=== PATIENT | male | born 1995 | race African-American/Black ===

== ENCOUNTER 2016-12-05 16:05 | Emergency (ER) | payer MEDICAID ==
[~2016-12-05] VITALS: Ht 157.5 cm; Wt 54.4 kg
[2016-12-05 16:25] VITALS: BP 110/60
--- NOTE | 2016-12-05 16:47 | Emergency Room Report ---
History of Present Illness General Chief Complaint: Flu Like Symptoms Source: Patient Present Illness HPI 21-year-old male presents emergency department complaining of persistent nonproductive cough times one week. Reports nasal congestion and rhinorrhea denies nausea, vomiting, fevers, chills. reports hx of asthma and is out of his advair medication, and will need refill. Patient reports his older brother had similar symptoms a week prior, he has been sharing drinks. Patient denies recent travel. Denies CP, Palpitations, LOC, AMS, dizziness, Changes in Vision, Sensation, paresthesias, or a sudden severe headache. Allergies: Coded Allergies: No Known Allergies (Unverified , 12/05/16) Patient History Past Medical History: see triage record Past Surgical History: none Pertinent Family History: none Immunizations: UTD Reviewed Nursing Documentation: PMH: Agreed, PSxH: Agreed Nursing Documentation-PMH Past Medical History: No Stated History Review of Systems All Other Systems: negative except mentioned in HPI Physical Exam Vital Signs Date Time Temp Pulse Resp B/P Pulse Ox O2 Delivery O2 Flow Rate FiO2 12/05/16 16:18 98.4 87 19 114/53 97 Room Air Sp02 EP Interpretation: reviewed, normal General Appearance: no apparent distress, alert, GCS 15, non-toxic Head: normocephalic, atraumatic Eyes: bilateral eye PERRL, bilateral eye normal inspection ENT: hearing grossly normal, normal pharynx, no angioedema, normal voice Neck: full range of motion, supple/symm/no masses Respiratory: chest non-tender, lungs clear, normal breath sounds, no rhonchi, no respiratory distress, no retraction, no accessory muscle use, speaking full sentences, wheezing - diffuse expiratory wheezes bilaterally Cardiovascular #1: regular rate, rhythm, no edema Gastrointestinal: normal bowel sounds, non tender, soft, no guarding, no rebound Rectal: deferred Genitourinary: normal inspection, no CVA tenderness Musculoskeletal: back normal, gait/station normal, normal range of motion, non- tender, no calf tenderness Neurologic: alert, oriented x3, responsive, motor strength/tone normal, sensory intact, speech normal Psychiatric: judgement/insight normal, memory normal, mood/affect normal, no suicidal/homicidal ideation Skin: normal color, no rash, warm/dry, well hydrated Lymphatic: no adenopathy Medical Decision Making PA Attestation Dr. banks is my supervising Physician whom patient management has been discussed with. Diagnostic Impression: Primary Impression: Upper respiratory infection, viral ER Course Pt. presents to the ED c/o dry cough and nasal congestion, and runny nose with hx of asthma x 1 week. Ddx considered but are not limited to URI, pneumonia, PE, strep pharyngitis, meningitis, bronchitis Vital signs: Pt.is afebrile VS are WNL H&PE are most consistent with bronchitis- URI/viral in etiology ORDERS: none required at this time, the diagnosis is clinical ED INTERVENTIONS: None required at this time. DISCHARGE: At this time pt. is stable for d/c to home. Will provide printed patient care instructions, and any necessary prescriptions. Care plan and follow up instructions have been discussed with the patient prior to discharge. Last Vital Signs Date Time Temp Pulse Resp B/P Pulse Ox O2 Delivery O2 Flow Rate FiO2 12/05/16 16:25 78 18 Room Air 12/05/16 16:25 98.0 110/60 97 Disposition: HOME, SELF-CARE Condition: Stable Scripts Loratadine/Pseudoephedrine (CLARITIN-D 12 HOUR TABLET) 1 Each Tab.er.12h 1 TAB ORAL EVERY 12 HOURS for 5 Days, #30 TAB Prov: Digna Torres P.A. 12/05/16 Fluticasone/Salmeterol (Advair 250-50 Diskus) 1 Each Blst.w.dev 1 PUFF INH EVERY 12 HOURS, #1 EA 2 Refills Prov: Digna Torres P.A. 12/05/16 Albuterol Sulfate* (ALBUTEROL SULFATE MDI*) 8.5 Gm Hfa.aer.ad 2 PUFF INH Q3H, #1 INH 0 Refills Prov: Digna Torres P.A. 12/05/16 D-Methorphan Hb/Prometh Hcl* (PROMETHAZINE-DM SYRUP*) 118 Ml Syrup 5 ML ORAL Q6H Y for For Cough, #240 ML 0 Refills Prov: Digna Torres P.A. 12/05/16 Patient Instructions: Upper Respiratory Infection, Adult Additional Instructions: Take medications as directed. Follow up with PCP in 3-5 days Return sooner to ED if new symptoms occur, or current symptoms become worse. Do not drink alcohol, drive, or operate heavy machinery while taking cough syrup as this may cause drowsiness. Digna Torres. Dec 05, 2016 16:47
[2016-12-05] MEDS ORDERED: PROMETHAZINE-D118 ML ORAL (16:49)
[2016-12-05] MEDS ORDERED: ALBUTEROL SULF8.5 GM INH (16:49)
[2016-12-05] MEDS ORDERED: CLARITIN-D 121 EAC1 ORAL (16:49)
[2016-12-05] MEDS ORDERED: ADVAIR 250-501 EACH INH (16:49)
[2016-12-05 17:00] VITALS: BP 116/62
== END 2016-12-05 17:00 | disposition home or self-care (01) ==
LOC: EMR 16:30
DX: J06.9 Acute upper respiratory infection, unspecified (principal); B97.89 Other viral agents as the cause of diseases classified elsewhere
CPT/HCPCS: 99284

== ENCOUNTER 2016-12-16 19:39 | Emergency (ER) | payer MEDICAID ==
[~2016-12-16] VITALS: Ht 162.6 cm; Wt 59.0 kg
[~2016-12-16 19:39] MED LIST: ADVAIR 250-501 EACH INH; ALBUTEROL SULF8.5 GM INH; CLARITIN-D 121 EAC1 ORAL; PROMETHAZINE-D118 ML ORAL
[2016-12-16] MEDS ORDERED: Azithromycin 250mg tab ORAL ONE (20:15)
[2016-12-16] MEDS ORDERED: Lidocaine 1% MPF 10mg/ml 5ml ONE (20:31)
[2016-12-16 21:11] VITALS: BP 115/75
--- NOTE | 2016-12-17 07:31 | Emergency Room Report ---
History of Present Illness General Chief Complaint: General Complaint Source: Patient Present Illness HPI Patient presents with girlfriend with concerns of possible STD Patient denies any symptoms denies any dysuria frequency Denies any discharge He had some minimal itching sensation on the right scrotal area Denies any abdominal pain denies any fevers or chills Denies any vomiting or diarrhea Allergies: Coded Allergies: No Known Allergies (Unverified , 12/05/16) Patient History Past Medical History: see triage record Pertinent Family History: none Reviewed Nursing Documentation: PMH: Agreed, PSxH: Agreed Nursing Documentation-PMH Past Medical History: No Stated History Review of Systems All Other Systems: negative except mentioned in HPI Physical Exam Vital Signs Date Time Temp Pulse Resp B/P Pulse Ox O2 Delivery O2 Flow Rate FiO2 12/16/16 20:12 99.7 71 16 115/75 99 Room Air Sp02 EP Interpretation: reviewed, normal General Appearance: well appearing, no apparent distress Head: normocephalic, atraumatic Eyes: bilateral eye EOMI, bilateral eye PERRL ENT: normal pharynx, no angioedema, normal voice Gastrointestinal: non tender, soft Genitourinary: other - No rash visualized on the scrotal area Musculoskeletal: normal inspection Neurologic: alert, oriented x3, responsive Skin: normal color, no rash Lymphatic: no adenopathy Medical Decision Making Diagnostic Impression: Primary Impression: urethritis ER Course Given the patient's presentation And concerns patient was treated symptomatically I did notify him that for STD workup Patient was given STD clinic referral At this time with the appropriate medical screening eval patient is appropriate for close outpatient follow Last Vital Signs Date Time Temp Pulse Resp B/P Pulse Ox O2 Delivery O2 Flow Rate FiO2 12/16/16 21:11 99.7 71 16 115/75 99 Room Air Status: improved Disposition: HOME, SELF-CARE Condition: Improved Referrals: [id number],REFERRING (PCP) Patient Instructions: Urethritis, Adult Additional Instructions: Patient is provided with the discharge instructions notified to follow up with primary doctor in the next 2-3 days otherwise return to the er with any worsening symptoms. MERY FLOYD D.O. Dec 17, 2016 07:30
== END 2016-12-16 21:19 | disposition home or self-care (01) ==
LOC: EMR 19:59
DX: N34.2 Other urethritis (principal)
CPT/HCPCS: 96372; 99283; J0696; Q0144

== ENCOUNTER 2017-02-11 21:46 | Emergency (ER) | payer MEDICAID ==
[~2017-02-11] VITALS: Ht 165.1 cm; Wt 59.0 kg
[2017-02-11] MEDS ORDERED: KEFLEX500 MG ORAL (23:17)
[2017-02-11] MEDS ORDERED: ALBUTEROL SULF8.5 GM INH (23:17)
[2017-02-11] MEDS ORDERED: PREDNISONE20 MG ORAL (23:17)
[2017-02-11] MEDS ORDERED: PROMETHAZINE-C118 M1 ORAL (23:17)
[2017-02-11] MEDS ORDERED: BACITRACIN15 GM TOPIC (23:18)
[2017-02-11] MEDS ORDERED: Lidocaine 1% MPF 10mg/ml 5ml ONE (23:27)
[2017-02-11] MEDS ORDERED: Azithromycin 250mg tab ORAL ONE (23:30)
[2017-02-11 23:41] VITALS: BP 120/78
--- NOTE | 2017-02-12 01:08 | Emergency Room Report ---
History of Present Illness General Chief Complaint: Upper Respiratory Illness Source: Patient Present Illness HPI 21-year-old male presents ED for evaluation. Patient notes productive cough x3 weeks. Patient states he smokes. Notes cough with greenish sputum. Denies fevers or chills. Denies chest pain or shortness of breath. Patient also notes some swelling to his scrotum x3 days. States that he states his scrotum. Notes redness and swelling. Denies any fevers or chills. Denies discharge. Patient states he's also sexually active and is concerned about STD. Denies any discharge at this time. No other aggravating or relieving factors. Denies any other associated symptoms Allergies: Coded Allergies: No Known Allergies (Unverified , 12/05/16) Patient History Past Medical History: asthma Past Surgical History: none Pertinent Family History: none Social History: Denies: alcohol use, drug use, smoking Immunizations: UTD Reviewed Nursing Documentation: PMH: Agreed, PSxH: Agreed Nursing Documentation-PMH Hx Asthma: Yes Review of Systems All Other Systems: negative except mentioned in HPI Physical Exam Vital Signs Date Time Temp Pulse Resp B/P Pulse Ox O2 Delivery O2 Flow Rate FiO2 02/11/17 22:59 98.2 88 15 120/78 99 Room Air Sp02 EP Interpretation: reviewed, normal General Appearance: no apparent distress, alert, GCS 15, non-toxic Head: normocephalic, atraumatic Eyes: bilateral eye PERRL, bilateral eye normal inspection ENT: hearing grossly normal, normal pharynx, no angioedema, normal voice Neck: full range of motion, supple/symm/no masses Respiratory: chest non-tender, lungs clear, normal breath sounds, speaking full sentences Cardiovascular #1: regular rate, rhythm, no edema Cardiovascular #2: 2+ carotid (R), 2+ carotid (L), 2+ radial (R), 2+ radial (L) , 2+ dorsalis pedis (R), 2+ dorsalis pedis (L) Gastrointestinal: normal bowel sounds, non tender, soft, non-distended, no guarding, no rebound Rectal: deferred Genitourinary: normal inspection, no CVA tenderness, other - erythema to scrotum. no fluctuance. no discharge Musculoskeletal: back normal, gait/station normal, normal range of motion, non- tender Neurologic: alert, oriented x3, responsive, motor strength/tone normal, sensory intact, speech normal Psychiatric: judgement/insight normal, memory normal, mood/affect normal, no suicidal/homicidal ideation Reflexes: 3+ bicep (R), 3+ bicep (L), 3+ tricep (R), 3+ tricep (L), 3+ knee (R) , 3+ knee (L) Skin: normal color, no rash, warm/dry, well hydrated Lymphatic: no adenopathy Medical Decision Making Diagnostic Impression: Primary Impression: Folliculitis Additional Impression: Bronchitis ER Course Hospital Course 21-year-old male presents to ED with productive cough x3 weeks, redness and swelling to scrotum Differential diagnoses include: Cellulitis, dermatitis, insect bite, abscess Clinical course Patient placed on stretcher. After initial history, physical exam reveals a young male in no acute distress. On exam there is a site for mild erythema to the scrotum. No fluctuance. No discharge. Consistent with folliculitis due to shaving. Patient concerned about potential STD with history of unprotected sex. No discharge at this time. Given Rocephin and azithromycin Respiratory symptoms consistent with bronchitis. We'll treat with cough syrup, albuterol and prednisone Diagnosis - folliculitis, bronchitis stable and discharged to home with prescription for prednisone, cough syrup, albuterol, bacitracin, Keflex. Instructed to followup with PMD. Instructed return to ED if symptoms recur or worsen Last Vital Signs Date Time Temp Pulse Resp B/P Pulse Ox O2 Delivery O2 Flow Rate FiO2 02/11/17 23:41 98.2 75 15 120/78 99 Room Air Status: improved Disposition: HOME, SELF-CARE Condition: Stable Scripts Bacitracin (Bacitracin) 28.4 Gm Oint...g. 1 APPLIC TOPIC THREE TIMES A DAY, #28.4 GM Prov: GRACE AARON M.D. 02/11/17 Albuterol Sulfate* (ALBUTEROL SULFATE MDI*) 8.5 Gm Hfa.aer.ad 2 PUFF INH Q4H Y for cough/wheezing, #1 EA 0 Refills Prov: GRACE AARON M.D. 02/11/17 Codeine/Promethazine Hcl* (PROMETHAZINE-CODEINE SYRUP*) 118 Ml Syrup 5 ML ORAL Q6H Y for For Cough, #118 ML 0 Refills Prov: GRACE AARON M.D. 02/11/17 Prednisone* (PREDNISONE*) 20 Mg Tablet 40 MG ORAL DAILY, #10 TAB Prov: GRACE AARON M.D. 02/11/17 Cephalexin* (KEFLEX*) 500 Mg Capsule 500 MG ORAL Q6H, #28 CAP 0 Refills Prov: GRACE AARON M.D. 02/11/17 Referrals: [id number],REFERRING (PCP) Patient Instructions: Acute Bronchitis, [id number], Folliculitis GRACE AARON M.D. Feb 12, 2017 01:08
== END 2017-02-11 23:40 | disposition home or self-care (01) ==
LOC: EMR 22:51
DX: J40 Bronchitis, not specified as acute or chronic (principal); L73.9 Follicular disorder, unspecified; J45.909 Unspecified asthma, uncomplicated; F17.200 Nicotine dependence, unspecified, uncomplicated
CPT/HCPCS: 96372; 99284; J0696; Q0144

== ENCOUNTER 2017-03-12 14:33 | Emergency (ER) | payer MEDICAID ==
[~2017-03-12] VITALS: Ht 162.6 cm; Wt 61.2 kg
[~2017-03-12 14:33] MED LIST changes: +BACITRACIN15 GM TOPIC; +KEFLEX500 MG ORAL; +PREDNISONE20 MG ORAL; +PROMETHAZINE-C118 M1 ORAL
[2017-03-12] MEDS ORDERED: ZITHROMAX250 MG ORAL (15:31)
[2017-03-12] MEDS ORDERED: PROMETHAZI6.25 MG/2 ORAL (15:31)
[2017-03-12] MEDS ORDERED: PROAIR HFA8.5 GM INH (15:31)
[2017-03-12 15:38] VITALS: BP 113/62
--- NOTE | 2017-03-12 16:51 | Emergency Room Report ---
History of Present Illness General Chief Complaint: Upper Respiratory Illness Source: Patient Present Illness [facility] The patient is a 21-year-old male who denies any medical history presenting for over 2 weeks of productive cough with subjective fevers. Produces a green to yellow sputum. He denies any sick contacts or recent travel. He has not tried any medications for this. He denies any other symptoms such as N, V, rash, LINDSAY, neck pain/stiffness, abd pain, SOB Allergies: Coded Allergies: No Known Allergies (Unverified , 12/05/16) Patient History Past Medical History: see triage record Pertinent Family History: none Reviewed Nursing Documentation: PMH: Agreed, PSxH: Agreed Nursing Documentation-PMH Past Medical History: No Stated History Hx Asthma: Yes Review of Systems All Other Systems: negative except mentioned in HPI Physical Exam Vital Signs Date Time Temp Pulse Resp B/P Pulse Ox O2 Delivery O2 Flow Rate FiO2 03/12/17 14:56 97.5 90 16 113/62 99 Room Air Sp02 EP Interpretation: reviewed, normal General Appearance: no apparent distress, alert, GCS 15, non-toxic Head: normocephalic, atraumatic Eyes: bilateral eye PERRL, bilateral eye normal inspection ENT: hearing grossly normal, normal pharynx, no angioedema, normal voice, uvula midline Neck: full range of motion, supple/symm/no masses Respiratory: no respiratory distress, no retraction, no accessory muscle use, expiration Cardiovascular #1: regular rate, rhythm, no edema Musculoskeletal: back normal, gait/station normal, normal range of motion, non- tender Neurologic: alert, oriented x3, responsive, motor strength/tone normal, sensory intact, normal gait, speech normal Psychiatric: judgement/insight normal, memory normal, mood/affect normal, no suicidal/homicidal ideation Skin: normal color, no rash, warm/dry, well hydrated Lymphatic: no adenopathy Medical Decision Making PA Attestation Dr. hameed is my supervising physician. Patient management was discussed with my supervising physician Diagnostic Impression: Primary Impression: Bronchitis ER Course The patient is a 21-year-old male who denies any medical history presenting for over 2 weeks of productive cough with subjective fevers Differential diagnosis include but not limited to pharyngitis, sinusitis, AOM, bronchitis, PNA PE: afebrile. No tachypnea. No apparent distress. No TTP over maxillary or frontal sinuses. Lungs: diffuse wheezing. No accessory muscle use. No resp distress Heart: RRR, no abnormal heart sounds Ears: external auditory canal clear. Non erythematous. Bilat TM intact. Cone of light present bilat. No bulging of TM. No serous fluid seen. no nasal D/C Nor cervical lymphad No tonsillar exudate. Uvula midline.Oropharynx non erythematous The patient will be discharged home with a prescriptions for cough medication, albuterol, and azithromycin due to worsening symptoms past 2 weeks. ER precautions given Last Vital Signs Date Time Temp Pulse Resp B/P Pulse Ox O2 Delivery O2 Flow Rate FiO2 03/12/17 15:38 97.5 88 16 113/62 99 Room Air Status: improved Disposition: HOME, SELF-CARE Condition: Improved Scripts Albuterol Sulfate* (PROAIR HFA*) 8.5 Gm Hfa.aer.ad 2 PUFFS INH Q6H, #8.5 GM 0 Refills Prov: ELLA ASENCIO 03/12/17 Azithromycin* (ZITHROMAX*) 250 Mg Tablet 250 MG ORAL DAILY, #6 TAB 0 Refills Take two tables once daily for 1 day, then one tablet once daily for 4 days. Prov: ELLA ASENCIO 03/12/17 Promethazine HCl (Promethazine HCl) 6.25 Mg/5 Ml Syrup 10 ML ORAL Q8H Y for For Cough, #120 ML 0 Refills Prov: ELLA ASENCIO 03/12/17 Referrals: [id number],REFERRING (PCP) Patient Instructions: Acute Bronchitis Additional Instructions: I discussed my findings with the patient. All questions and concerns have been answered. Treatment and medication compliance have been addressed. I advised the patient that they need to follow up with PMD in 3-5 days. Return to ED if pain remains or worsens, cough worsens or remains, you notice blood in your sputum, you notice wheezing, you experience a fever, or if needed for any reason. Patient verbalized understanding of discharge instructions. ELLA ASENCIO Mar 12, 2017 16:51
== END 2017-03-12 15:38 | disposition home or self-care (01) ==
LOC: EMR 15:27
DX: J45.909 Unspecified asthma, uncomplicated (principal)
CPT/HCPCS: 99284

== ENCOUNTER 2017-06-14 18:12 | Emergency (ER) | payer MEDICAID ==
[~2017-06-14] VITALS: Ht 165.1 cm; Wt 60.3 kg
[~2017-06-14 18:12] MED LIST changes: +PROAIR HFA8.5 GM INH; +PROMETHAZI6.25 MG/2 ORAL; +ZITHROMAX250 MG ORAL
--- NOTE | 2017-06-14 18:40 | Emergency Room Report ---
History of Present Illness General Chief Complaint: Wound Recheck/Suture Removal Source: Patient Present Illness HPI 21-year-old male presents to the emergency department for suture removal of left lower lip lack that he sustained 5 days ago. Patient denies pain at this time he states that He was unable to fill his prescription for antibiotics because he lost it. He reports erythema and some yellow discharge about the sutures. Patient also states that he wants to be treated for STDs as he had recent unprotected intercourse with someone he believes may have one. he denies dysuria, penile discharge, testicular pain, swelling tender lymph nodes, rashes or joint pain. Patient denies nausea, vomiting, fevers, chills, abdominal pain. Patient also is requesting refill of his asthma medications Advair and albuterol. Patient reports she's been having intermittent productive cough and is out of his inhalers. Denies CP, Palpitations, LOC, AMS, dizziness, Changes in Vision, Sensation, paresthesias, or a sudden severe headache. Allergies: Coded Allergies: No Known Allergies (Unverified , 12/05/16) Patient History Past Medical History: see triage record Past Surgical History: none Pertinent Family History: none Immunizations: UTD Reviewed Nursing Documentation: PMH: Agreed, PSxH: Agreed Nursing Documentation-PMH Hx Asthma: Yes Review of Systems All Other Systems: negative except mentioned in HPI Physical Exam Vital Signs Date Time Temp Pulse Resp B/P Pulse Ox O2 Delivery O2 Flow Rate FiO2 06/14/17 18:16 98.8 77 15 117/67 96 Room Air Sp02 EP Interpretation: reviewed, normal General Appearance: no apparent distress, alert, GCS 15, non-toxic Head: normocephalic, atraumatic Eyes: bilateral eye PERRL, bilateral eye normal inspection ENT: hearing grossly normal, normal pharynx, no angioedema, normal voice Neck: full range of motion, supple/symm/no masses Respiratory: chest non-tender, lungs clear, normal breath sounds, no wheezing, speaking full sentences Cardiovascular #1: regular rate, rhythm, no edema Gastrointestinal: non tender, soft, no guarding, no rebound Rectal: deferred Genitourinary: normal inspection, no CVA tenderness Musculoskeletal: back normal, gait/station normal, normal range of motion, non- tender Neurologic: alert, oriented x3, responsive, motor strength/tone normal, sensory intact, normal gait, speech normal Psychiatric: judgement/insight normal, memory normal, mood/affect normal Skin: normal color, no rash, warm/dry, well hydrated, other - left lip laceration healing with d/c noted suspicious for infeciton, no dehiscence. Lymphatic: no adenopathy Medical Decision Making PA Attestation Dr. Miranda is my supervising Physician whom patient management has been discussed with. Diagnostic Impression: Primary Impression: Encounter for removal of sutures Additional Impressions: Infected laceration of lip Qualified Codes: S01.511A - Laceration without foreign body of lip, initial encounter; L08.9 - Local infection of the skin and subcutaneous tissue, unspecified Medication refill Contact with or exposure to venereal diseases ER Course 21-year-old male presents to the emergency department for suture removal of left lower lip lack that he sustained 5 days ago. Patient denies pain at this time he states that He was unable to fill his prescription for antibiotics because he lost it. He reports erythema and some yellow discharge about the sutures. Patient also states that he wants to be treated for STDs as he had recent unprotected intercourse with someone he believes may have one. he denies dysuria, penile discharge, testicular pain, swelling tender lymph nodes, rashes or joint pain. Patient denies nausea, vomiting, fevers, chills, abdominal pain. Patient also is requesting refill of his asthma medications Advair and albuterol. Patient reports she's been having intermittent productive cough and is out of his inhalers. Denies CP, Palpitations, LOC, AMS, dizziness, Changes in Vision, Sensation, paresthesias, or a sudden severe headache. Ddx considered but are not limited to laceration, tendon injury, cellulitis, dehiscence, STD, urethritis, medication refill request. Vital signs: are WNL, pt. is afebrile H&PE are most consistent with: healing laceration of the left lower lip with evidence of purulent d/c suggesting infection. ORDERS: none required at this time, the diagnosis is clinical ED INTERVENTIONS: - 3 Sutures removed. -250mg Rocephin IM -D/w pt. to start abx. DISCHARGE: At this time pt. is stable for d/c to home. Will provide printed patient care instructions, and any necessary prescriptions. Care plan and follow up instructions have been discussed with the patient prior to discharge. Last Vital Signs Date Time Temp Pulse Resp B/P Pulse Ox O2 Delivery O2 Flow Rate FiO2 06/14/17 18:16 98.8 77 15 117/67 96 Room Air Disposition: HOME, SELF-CARE Condition: Stable Scripts Doxycycline Hyclate* (VIBRAMYCIN*) 100 Mg Capsule 100 MG ORAL EVERY 12 HOURS for 7 Days, #14 CAP 0 Refills Prov: Digna Torres 06/14/17 Guaifenesin/Dextromethorphan (PERFECTOITUSSIN COUGH-CHEST DM LIQ) 237 Ml Liquid 10 ML PO Q6HR, #118 ML Prov: Digna Torres 06/14/17 Fluticasone/Salmeterol (Advair 100-50 Diskus) 1 Each Blst.w.dev 1 PUFF INH EVERY 12 HOURS, #1 EA Prov: Digna Torres 06/14/17 Albuterol Sulfate* (ALBUTEROL SULFATE MDI*) 8.5 Gm Hfa.aer.ad 2 PUFF INH Q6H, #1 INH 0 Refills Prov: Digna Torres 06/14/17 Ibuprofen* (MOTRIN*) 600 Mg Tablet 600 MG ORAL THREE TIMES A DAY, #30 TAB 0 Refills Prov: Digna Torres 06/14/17 Patient Instructions: Suture Removal, Care After Additional Instructions: Take medications as directed. Follow up with a Primary Care Provider in 3-5 days, even if your symptoms have resolved. --Please review list of primary care clinics, if you do not already have a primary care provider Return sooner to ED if new symptoms occur, or current symptoms become worse. - Please note that this Emergency Department Report was dictated using [employer] perforator operator technology software, occasionally this can lead to erroneous entry secondary to interpretation by the dictation equipment. Digna Torres Jun 14, 2017 18:40
[2017-06-14] MEDS ORDERED: AMOXICILLIN500 MG ORAL (18:41)
[2017-06-14] MEDS ORDERED: IBUPROFEN600 MG ORAL (18:41)
[2017-06-14 18:53] VITALS: BP 117/67
[2017-06-14] MEDS ORDERED: ROBITUSSIN COU237 M1 PO (18:53)
[2017-06-14] MEDS ORDERED: ALBUTEROL SULF8.5 GM INH (18:53)
[2017-06-14] MEDS ORDERED: ADVAIR 100-501 EACH INH (18:53)
[2017-06-14] MEDS ORDERED: VIBRAMYCIN100 MG ORAL (18:55)
[2017-06-14 19:21] VITALS: BP 117/67
== END 2017-06-14 19:17 | disposition home or self-care (01) ==
LOC: EMR 18:51
DX: S01.511D Laceration without foreign body of lip, subsequent encounter (principal); L08.9 Local infection of the skin and subcutaneous tissue, unspecified; X58.XXXD Exposure to other specified factors, subsequent encounter; Z48.02 Encounter for removal of sutures; Z76.0 Encounter for issue of repeat prescription; Z20.2 Contact with and (suspected) exposure to infections with a predominantly sexual mode of transmission; J45.909 Unspecified asthma, uncomplicated
CPT/HCPCS: 96372; 99284; J0696

== ENCOUNTER 2017-09-16 08:59 | Emergency (ER) | payer MEDICAID ==
[~2017-09-16] VITALS: Ht 160 cm; Wt 61.2 kg
[~2017-09-16 08:59] MED LIST changes: +ADVAIR 100-501 EACH INH; +AMOXICILLIN500 MG ORAL; +IBUPROFEN600 MG ORAL; +ROBITUSSIN COU237 M1 PO; +VIBRAMYCIN100 MG ORAL
[2017-09-16] MEDS ORDERED: Norco 5mg/325mg tab ORAL ONE (09:30)
[2017-09-16] MEDS: Lidocaine 1% Plain 30 ml INJ ONE ×2 (10:20→10:30)
[2017-09-16] MEDS ORDERED: KEFLEX500 MG ORAL (10:30)
[2017-09-16 10:45] VITALS: BP 110/67
[2017-09-16] MEDS ORDERED: Bacitracin Oint UD TOPIC ONE (10:45)
--- NOTE | 2017-09-16 11:41 | Emergency Room Report ---
History of Present Illness General Chief Complaint: Laceration Source: Patient Present Illness HPI 21-year-old male presents ED for evaluation. States that last night he was walking and cut his leg on a piece of broken glass. Denies any other injuries. Tetanus is up-to-date. States there is bleeding and pain. 8/10, throbbing, nonradiating. Denies any other injuries. No other aggravating factors. Denies any other associated symptom Allergies: Coded Allergies: No Known Allergies (Unverified , 12/05/16) Patient History Past Medical History: asthma Past Surgical History: none Pertinent Family History: none Social History: Denies: smoking, alcohol use, drug use Immunizations: UTD Reviewed Nursing Documentation: PMH: Agreed, PSxH: Agreed Nursing Documentation-PMH Past Medical History: No Stated History Hx Asthma: Yes Review of Systems All Other Systems: negative except mentioned in HPI Physical Exam Vital Signs Date Time Temp Pulse Resp B/P (MAP) Pulse Ox O2 Delivery O2 Flow Rate FiO2 09/16/17 09:02 98.1 82 18 119/65 99 Room Air Sp02 EP Interpretation: reviewed, normal General Appearance: no apparent distress, alert, GCS 15, non-toxic Head: normocephalic Eyes: bilateral eye normal inspection, bilateral eye PERRL ENT: normal ENT inspection Neck: normal inspection Respiratory: normal inspection Cardiovascular #1: normal inspection Gastrointestinal: normal inspection Rectal: deferred Genitourinary: no CVA tenderness Musculoskeletal: back normal, gait/station normal, normal range of motion, non- tender Neurologic: alert, oriented x3, responsive, motor strength/tone normal, sensory intact, speech normal Psychiatric: judgement/insight normal, memory normal, mood/affect normal, no suicidal/homicidal ideation Skin: laceration - 0.5cm laceration to L lateral leg. surrounding skin abrasion noted Lymphatic: normal inspection Procedures Laceration/Wound Repair Laceration/Wound Repair : Consent: Verbal Wound Location: lower extremity - L leg Wound's Depth, Shape: irregular Wound Explored: clean Betadine Prep?: Yes Anesthesia: 1% Lidocaine Wound Repaired With: sutures Suture Size/Type: 3:0, other - vicryl Layer Closure?: No Sterile Dressing Applied?: Yes Splint Applied?: No Sling Applied?: No Patient Tolerated: Well Complications: None Medical Decision Making Diagnostic Impression: Primary Impression: Laceration of leg Qualified Codes: S81.812A - Laceration without foreign body, left lower leg, initial encounter ER Course Hospital Course 21-year-old M presents to ED s/p laceration L leg with broken glass Clinical course Patient placed on stretcher. After initial history and physical I ordered x- ray and pain medication. X-ray shows no signs of foreign body or glass wound Irrigated The laceration itself is small. Repaired with Vicryl. Dressing applied Diagnosis - laceration of leg Stable and discharged to home with prescription for keflex. wound Care instructions given. Followup with PMD. Return to ED if any signs of infection develop Other X-Ray Diagnostic Results Other X-Ray Diagnostic Results : X-Ray ordered: L leg # of Views/Limited Vs Complete: 2 View Indication: Pain EP Interpretation: Yes Interpretation: no dislocation, no soft tissue swelling, no fractures, other - no FB Impression: No acute disease Electronically Signed by: Electronically signed by Luis Eduardo Sharp MD Last Vital Signs Date Time Temp Pulse Resp B/P (MAP) Pulse Ox O2 Delivery O2 Flow Rate FiO2 09/16/17 09:02 98.1 82 18 119/65 99 Room Air Status: improved Disposition: HOME, SELF-CARE Condition: Stable Scripts Cephalexin* (KEFLEX*) 500 Mg Capsule 500 MG ORAL Q6H, #28 CAP 0 Refills Prov: LUIS EDUARDO SHARP M.D. 09/16/17 Patient Instructions: Laceration Care, Adult LUIS EDUARDO SHARP M.D. Sep 16, 2017 11:40
--- NOTE | 2017-09-16 11:43 | Diagnostic Imaging Report ---
Indication: Pain Comparison: None Findings: Two views of the left tibia and fibula were obtained. No acute fracture, malalignment, or periosteal reaction are identified. Soft tissues are unremarkable. Impression: Negative examination of the tibia and fibula
== END 2017-09-16 10:45 | disposition home or self-care (01) ==
LOC: EMR 10:20
DX: S81.812A Laceration without foreign body, left lower leg, initial encounter (principal); W25.XXXA Contact with sharp glass, initial encounter; Y93.01 Activity, walking, marching and hiking; Y92.89 Other specified places as the place of occurrence of the external cause; J45.909 Unspecified asthma, uncomplicated
CPT/HCPCS: 12001; 73590; 99283; Z7502

== ENCOUNTER 2017-10-07 20:42 | Emergency (ER) | payer MEDICAID ==
[~2017-10-07] VITALS: Ht 162.6 cm; Wt 61.2 kg
[2017-10-07] MEDS ORDERED: IBUPROFEN600 MG ORAL (21:04)
--- NOTE | 2017-10-07 21:07 | Emergency Room Report ---
History of Present Illness General Chief Complaint: Sore Throat Source: Patient Present Illness HPI 21YOM walk-in for sore throat "because I wanted to get checked out" accompanying girlfriend who is also patient in ED 3 days sore throat, left sided, with dry cough +smoker, asthmatic Denies fever/chills, SOB, chest pain, abd pain Feels well otherwise Didnt take any OTC meds Allergies: Coded Allergies: No Known Allergies (Unverified , 12/05/16) Patient History Past Medical History: asthma Past Surgical History: none Pertinent Family History: none Social History: Reports: smoking Immunizations: UTD Reviewed Nursing Documentation: PMH: Agreed, PSxH: Agreed Nursing Documentation-PMH Hx Asthma: Yes Review of Systems All Other Systems: negative except mentioned in HPI Physical Exam Vital Signs Date Time Temp Pulse Resp B/P (MAP) Pulse Ox O2 Delivery O2 Flow Rate FiO2 10/07/17 20:52 97.9 69 18 106/61 98 Sp02 EP Interpretation: reviewed, normal General Appearance: normal inspection, well appearing, no apparent distress, alert, GCS 15, non-toxic Head: normocephalic, atraumatic Eyes: bilateral eye PERRL, bilateral eye EOMI ENT: normal ENT inspection, hearing grossly normal, normal pharynx, no angioedema, normal voice, uvula midline, moist mucus membranes Neck: normal inspection, full range of motion, supple, no bony tend Respiratory: normal inspection, lungs clear, normal breath sounds, no respiratory distress, no retraction, no wheezing Cardiovascular #1: regular rate, rhythm, no edema Gastrointestinal: normal inspection, normal bowel sounds, non tender, soft, no guarding, no hernia Genitourinary: no CVA tenderness Musculoskeletal: normal inspection, back normal, normal range of motion, Coleen' s Sign negative Neurologic: normal inspection, alert, responsive, speech normal Psychiatric: normal inspection, judgement/insight normal, mood/affect normal Skin: normal inspection, normal color, no rash Medical Decision Making Diagnostic Impression: Primary Impression: Sore throat ER Course 3 days sore throat Likely viral given assoc cough VSS. Afebrile No signs of serious bacterial infection Advised NSAIDs, fluids, supportive tx for now DC home Last Vital Signs Date Time Temp Pulse Resp B/P (MAP) Pulse Ox O2 Delivery O2 Flow Rate FiO2 10/07/17 20:52 97.9 69 18 106/61 98 Status: improved Disposition: HOME, SELF-CARE Condition: Improved Scripts Ibuprofen* (MOTRIN*) 600 Mg Tablet 600 MG ORAL THREE TIMES A DAY for sore throat for 7 Days, #30 TAB 0 Refills Prov: HOWARD PHILLIPS M.D. 10/07/17 Patient Instructions: Sore Throat HOWARD PHILLIPS M.D. Oct 07, 2017 21:07
[2017-10-07 21:20] VITALS: BP 106/61
== END 2017-10-07 21:20 | disposition home or self-care (01) ==
LOC: EMR 21:02
DX: R07.0 Pain in throat (principal); J45.909 Unspecified asthma, uncomplicated; F17.200 Nicotine dependence, unspecified, uncomplicated
CPT/HCPCS: 99283